=== PATIENT | female | born 1935 | race African-American/Black ===

== ENCOUNTER → 2017-12-13 | Day surgery (SDC) | payer OTHER ==
[~2017-12-13] MED LIST: AMLO10TA2 PO; ATROPINE 0.5 MG/5 ML DISP.SYRIN. IV PRN; GABA-585 PO; GLIM2TAB2 PO; IV RINGERS SOLUTION,LACTATED 1,000 ML IV SCH; LIDOCAINE 2% PF Vial for OR 5 ML VIAL. ONE; NALOXONE 0.4 MG/ML VIAL. IV PRN; ONDANSETRON PF 4 MG/2 ML VIAL. IV PRN; PRAV40TA2 PO; PROPOFOL 20 ML IV ONE; SITA100T PO; SPIR25TA5 PO; diphenhydrAMINE 50 MG/ML VIAL IV PRN
[2017-12-13 14:00] VITALS: BP 178/78
== END ==
LOC: SURG 11:53
PROVIDERS: ATTEND Internal Medicine Gastroenterology
DX: K57.30 Diverticulosis of large intestine without perforation or abscess without bleeding (principal); K64.4 Residual hemorrhoidal skin tags; K64.0 First degree hemorrhoids; I10 Essential (primary) hypertension; E11.9 Type 2 diabetes mellitus without complications; Z98.890 Other specified postprocedural states
CPT/HCPCS: 45378; 82947; J2704; J7120; J2001

== ENCOUNTER → 2018-02-14 | Day surgery (SDC) | payer OTHER ==
[2018-02-13] MEDS: IV RINGERS SOLUTION,LACTATED 1,000 ML IV SCH (21:13)
[~2018-02-14] MED LIST changes: +ALBUTEROL SULFATE 2.5 MG/3 ML NEBU. NEB PRN; -IV RINGERS SOLUTION,LACTATED 1,000 ML IV SCH; +PROPOFOL 10,000 MCG/ML (20ML) VIAL IV ONE
[2018-02-14] MEDS: IV RINGERS SOLUTION,LACTATED 1,000 ML IV SCH (11:14)
[2018-02-14 12:35] VITALS: BP 140/81
== END | disposition home or self-care (01) ==
LOC: SURG 10:11
PROVIDERS: ATTEND Internal Medicine Gastroenterology
DX: K29.00 Acute gastritis without bleeding (principal); D50.9 Iron deficiency anemia, unspecified; I10 Essential (primary) hypertension; E11.9 Type 2 diabetes mellitus without complications; Z88.5 Allergy status to narcotic agent; Z79.899 Other long term (current) drug therapy; Z79.84 Long term (current) use of oral hypoglycemic drugs; Z98.890 Other specified postprocedural states
CPT/HCPCS: 43239; 82947; 88305; 88342; J2704; J7120; J2001